=== PATIENT | female | born 1975 | race Caucasian/White ===

== ENCOUNTER → 2017-08-11 | Outpatient (CLI) | payer BC ==
[~2017-08-11] MED LIST: CLARITIN10 MG PO; PHENERGAN W/ DE30 ML PO; PREDNICOT10 MG PO; PROAIR HFA0.09 MG/AC INH
== END | disposition home or self-care (01) ==
LOC: LAB 11:44
DX: R19.7 Diarrhea, unspecified (principal)

== ENCOUNTER → 2020-01-18 | Outpatient (CLI) | payer BC | END | disposition home or self-care (01) | LOC: US 15:00 | DX: M79.604 Pain in right leg (principal) ==

== ENCOUNTER → 2020-05-08 | Outpatient (CLI) | payer BC | LOC: COVID19 13:33 | PROVIDERS: ATTEND Internal Medicine | DX: Z20.828 Contact with and (suspected) exposure to other viral communicable diseases (principal) ==

== ENCOUNTER → 2024-07-18 | Outpatient (CLI) | payer BC | END | disposition home or self-care (01) | LOC: RAD 12:52 | PROVIDERS: ATTEND Internal Medicine | DX: M43.16 Spondylolisthesis, lumbar region (principal); M25.552 Pain in left hip; M54.50 Low back pain, unspecified; M85.88 Other specified disorders of bone density and structure, other site ==

== ENCOUNTER → 2025-05-15 | Outpatient (CLI) | payer BC | END | disposition home or self-care (01) | LOC: LAB 11:02 | PROVIDERS: ATTEND Nurse Practitioner Family | DX: T07.XXXA Unspecified multiple injuries, initial encounter (principal); X58.XXXA Exposure to other specified factors, initial encounter; Y93.89 Activity, other specified; Y92.89 Other specified places as the place of occurrence of the external cause; Y99.8 Other external cause status ==